=== PATIENT | male | born 1940 | race Caucasian/White ===

== ENCOUNTER 2021-01-03 17:16 | Observation (INO) | payer MEDICARE, OTHER ==
[~2021-01-03] VITALS: Ht 182.9 cm; Wt 107.7 kg
[2021-01-03 21:24] LABS: BASO % 0.1 % (0.0-2.0); EOS % 0.1 % (0-4.0); GRAN # 7.8 (1.4-6.5); GRAN % 85.4 % (42.2-75.2); HEMATOCRIT 44.6 % (42.0-52.0); HEMOGLOBIN 13.9 g/dl (13.5-18.0); LYMPH # 0.6 (1.2-3.4); MEAN CELL VOLUME 88 fl (80.0-100.0); MEAN CORPUSCULAR HEMOGLOBIN 28 pg (27.0-31.0); MEAN CORPUSCULAR HGB CONC 31 g/dl (33.0-37.0); MEAN PLATELET VOLUME 10.9 fl (7.4-10.4); MONO # 0.6 (0.1-0.6); MONO % 6.5 % (1.7-9.3); PLATELET COUNT 217 K/mm3 (130-400); RED BLOOD COUNT 5.05 M/mm3 (4.20-5.60); REDCELL DISTRIBUTION WIDTH-CV 13.8 % (11.5-14.5)
[2021-01-03 21:37] LABS: ALBUMIN 4.5 gm/dL (3.5-5.0); BILIRUBIN,TOTAL 0.3 mg/dL (0.0-1.0); CALCIUM 9.4 mg/dL (8.4-10.2); CREATININE, serum 0.65 (0.66-1.25); POTASSIUM 4.2 mmol/L (3.4-5.0); TOTAL PROTEIN 7.7 gm/dL (6.4-8.2)
[2021-01-03] MEDS ORDERED: TOPROL XL 25MG25 MG PO (22:50)
[2021-01-03] MEDS ORDERED: ELIQUIS 5MG PO (22:51)
[2021-01-04 00:27] VITALS: BP 141/76; PULSE 87
[2021-01-04 04:03] VITALS: BP 143/77; PULSE 84; TEMP 97.9
--- NOTE | 2021-01-04 05:02 | NUR ---
PATIENT HAD RESTFUL NIGHT. REQUESTED NO PRN PAIN MEDICATIONS. IT IS NOTED WHEN HE IS SPEAKING AT LENGTH, HIS O2 SATS DROP, HOWEVER THIS IS BECAUSE HE IS UNABLE TO TAKE DEEP BREATHS WITHOUT PAIN. PATIENT HAD NO REQUESTS OR CONCERNS THIS SHIFT.
[2021-01-04 08:10] VITALS: BP 143/78; PULSE 67; TEMP 97.9
[2021-01-04] MEDS ORDERED: ARMOUR THYROID60 MG PO (08:13)
[2021-01-04] MEDS ORDERED: LASIX 40MG TABL40 MG PO (08:13)
[2021-01-04] MEDS ORDERED: COZAAR 50MG50 MG/TAB PO (08:14)
[2021-01-04] MEDS ORDERED: PROTONIX 40MG T40 MG PO (08:14)
[2021-01-04] MEDS ORDERED: NORVASC 10MG10 MG PO (08:14)
[2021-01-04] MEDS ORDERED: LIPITOR 40MG TA40 MG PO (08:15)
--- NOTE | 2021-01-04 10:00 | NUR ---
Pt assessment complete. Pt is laying in bed upon entry, he is A/O x4. His breathing is shallow. Pt reports pain is controlled at rest, but spikes with movement to R side. No N/V. POC discussed with patient who verbalizes understanding.
[2021-01-04] MEDS ORDERED: ONE-A-DAY ESSE1 EACH PO (11:10)
[2021-01-04] MEDS ORDERED: TYLENOL 8 HR PO (11:13)
[2021-01-04] MEDS ORDERED: VITAMIN A10k PO (11:14)
[2021-01-04] MEDS ORDERED: MASON NATURAL2000 IU PO ×2 (11:15→11:16)
[2021-01-04] MEDS ORDERED: B-121000 MCG PO (11:15)
[2021-01-04] MEDS ORDERED: PHARMASSURE ZIN50 MG PO (11:16)
[2021-01-04] MEDS ORDERED: VITAMINC1000TA (11:17)
[2021-01-04 12:03] VITALS: BP 136/65; PULSE 62; TEMP 98.5
--- NOTE | 2021-01-04 13:35 | NUR ---
Pt encouraged to move in room as well as deep breathing. IS given. Pt has pain with movement, PRN pain medication administered.
[2021-01-04 15:23] VITALS: BP 143/65; PULSE 64; TEMP 98.1
--- NOTE | 2021-01-04 16:29 | NUR ---
[employer] Clerk met with patient and his , Merary (ph#[phone]) to discuss discharge planning. Patient is from [place], [place] and was here visiting family. Patient sees Dr. Elias Joyner for primary care and obtains medications from [facility] with no difficulties. Patient does not use any DME and reports independence with ADLS. Patient states he has a partially completed DPOA-HC at home he plans to complete at a later time. Patient plans to return home to [place] upon discharge. Discharge Plan: Home ([place])
--- NOTE | 2021-01-04 18:46 | NUR ---
Pt did agree to walk in the hallway with staff, ambulated with use of walker and SBA. PRN [place] given after. No needs at this time.
[2021-01-04 19:35] VITALS: BP 146/75; PULSE 68; TEMP 98.4
--- NOTE | 2021-01-04 20:23 | NUR ---
PT IN BED WITH HOB ELEVATED TO 45 DEGREE ANGLE. DENIES PAIN OR DISCOMFORT WHILE LAYING IN ONE POSITION. PT A/O X3, HAS GLASSES ON, AND WATCHING TV. PT HAS NO NEEDS AT THIS TIME, CALL LIGHT WITHIN REACH.
[2021-01-05 00:32] VITALS: BP 156/80; PULSE 60; TEMP 98
[2021-01-05 04:03] VITALS: BP 160/75; PULSE 60; TEMP 98.1
--- NOTE | 2021-01-05 04:32 | NUR ---
NO ISSUES OR CONCERNS NOTED THIS SHIFT. PT DID GET UP A SOME DURING THE NIGHT TO USE THE BATHROOM AND THEN BACK TO BED. PT IS CONCERNED WITH GOING HOME BECAUSE HE HAS THREE FLIGHTS OF STAIRS. PT HAS NO PAIN LONG HE IS LAYING STILL, BUT ONCE HE HAS TO GET UP TO MOVE, HIS PAIN IS ABOUT 8/10. PT WAS GIVEN PRN PAIN MEDICATION TO HELP WITH HIS PAIN. PT HAS NO ISSUES OR NEEDS AT THIS TIME, AND CALL LIGHT IS WITHIN REACH.
[2021-01-05 06:42] LABS: HEMATOCRIT 39.1 % (42.0-52.0); HEMOGLOBIN 12.5 g/dl (13.5-18.0)
[2021-01-05 06:53] LABS: CALCIUM 8.9 mg/dL (8.4-10.2); CREATININE, serum 0.62 (0.66-1.25); POTASSIUM 3.7 mmol/L (3.4-5.0)
[2021-01-05 08:10] VITALS: BP 146/74; PULSE 65; TEMP 98.1
--- NOTE | 2021-01-05 08:28 | NUR ---
Patient resting in bed. Awake & alert. He reports pain being better managed with [place]. He reports he also has chronic back pain. He did not yet want breakfast. Denies nausea. Int. Provided with hygiene supplies, he is brushing his teeth. Using his IS. Will monitor.
--- NOTE | 2021-01-05 11:13 | NUR ---
Social work assisting with discharge planning. rounded. Therapy rounded.
--- NOTE | 2021-01-05 11:45 | NUR ---
SW followed up with patient on DC plan. Patient indicated that his PCP is Elias Choudhary at [facility], [facility] Dr. Neptali Briscoe . Patient reports that he needs coordination of care wih his Insurance company that is going to help him with a plan ticket home, a car service to drive his car home. CLient indicated that he uses [facility] for medications. Patient reports that his son has three flights of stairs and does not want to go up and doewn those and want to be able to go home and with transfer possible to additional care for home health services. Unsure on how to support client in the plan.
[2021-01-05 11:48] VITALS: BP 156/84; PULSE 70; TEMP 98.2
--- NOTE | 2021-01-05 15:02 | NUR ---
Paperwork faxed per patient request. His at bedside, they are trying to figure out a discharge plan for getting home to [place]. They are now thinking maybe the will drive them home vs getting on a plane. Motrin giving for pain, not yet able to have norco. continue to encourage & activity & Is use.
[2021-01-05 15:45] VITALS: BP 146/77; PULSE 73; TEMP 98.1
--- NOTE | 2021-01-05 17:16 | NUR ---
Patient was up and ambulated halls with his . [place] for pain. He is now visiting on the phone. Will monitor.
--- NOTE | 2021-01-05 18:25 | NUR ---
Patient sitting at edge of bed eating dinner. Pain managed. Encouarged him to ambulate halls again. Bedside report to night nurse
--- NOTE | 2021-01-05 19:45 | NUR ---
Pt. sitting up in bed at this time. Pt. is A&OX3, assessment complete. INT to lt. vargas patent. Pt. reports pain at a 4 on pain scale, gave pain meds per orders. Pt. denies further needs, call light within reach.
[2021-01-05 19:51] VITALS: BP 133/72; PULSE 65; TEMP 98.4
[2021-01-06] VITALS: BP 157/74; PULSE 59; TEMP 98.2
[2021-01-06 04:00] VITALS: BP 151/77; PULSE 54; TEMP 98.3
--- NOTE | 2021-01-06 08:18 | NUR ---
Patient up to the bathroom. one assist. Pain continues to be elevated with movement. Some dyspnea on exertion noted. Lungs clear. Int. Will monitor.
[2021-01-06 08:35] VITALS: BP 153/76; PULSE 66; TEMP 98.7
--- NOTE | 2021-01-06 11:04 | NUR ---
ANTHONY met with the patient and his , Merary, to review d/c plan. The patient and Merary plan on returning back to their son's home for a few days before returning back to [place]. Merary reports that their [id number] is becoming a [place] citizen and they want to be here for that. Merary and the patient inquired about where to get a FWW. ANTHONY informed them about about how we can order one through his insurance vs them private paying for one or renting one. Merary and the patient state they will think about what they want to do. The patient reports that he does have a FWW, but that it is at home in [place]. *Discharge plan: son's house*
[2021-01-06 11:18] VITALS: BP 146/72; PULSE 61; TEMP 98.9
[2021-01-06] MEDS ORDERED: ULTRAM 50MG TAB50 MG PO (12:30)
[2021-01-06 15:10] VITALS: BP 147/77; PULSE 66; TEMP 98.4
--- NOTE | 2021-01-06 17:30 | NUR ---
Patient ready for discharge. All discharge instructions reviewed. Patient going home to sons home. He plans to drive home later in the week. Patient discharge paperwork faxed to his PCP per his request. [place] for pain prior to discharge per his request. He continues to tolerate meals. no nausea. Signs & symptoms & when to call doctor or seek medical attention reviewed. home med list reviewed & medication safety reviewed. Patient wheeled out with all belongings. His son taking him home.
== END 2021-01-06 19:32 | disposition home or self-care (01) ==
LOC: COL.ER 17:16 → SURG 18:38
PROVIDERS: Family Medicine; ADMIT Surgery
DX: S22.41XA Multiple fractures of ribs, right side, initial encounter for closed fracture (principal); I48.91 Unspecified atrial fibrillation; E03.9 Hypothyroidism, unspecified; I10 Essential (primary) hypertension; M19.90 Unspecified osteoarthritis, unspecified site; W01.0XXA Fall on same level from slipping, tripping and stumbling without subsequent striking against object, initial encounter; Z79.890 Hormone replacement therapy; Z79.01 Long term (current) use of anticoagulants; Z79.899 Other long term (current) drug therapy; Z85.46 Personal history of malignant neoplasm of prostate; Z90.79 Acquired absence of other genital organ(s)
CPT/HCPCS: A9284; G0378; J1885; J2270; J7120